=== PATIENT | male | born 1950 | race Caucasian/White ===

== ENCOUNTER 2018-02-05 07:31 | Inpatient (IN) ==
[2018-02-05] MEDS ORDERED: ceFAZolin 2 GM Premix Inj 2 GM/50 ML PIGGYBACK IV.SIG SCH (08:00)
[2018-02-05] MEDS ORDERED: SODIUM CHLOR 0.9% IV.SIG SCH ×2 (08:00→09:00)
[2018-02-05] MEDS ORDERED: TRANEXAMIC ACID IV.SIG SCH ×2 (08:00→09:00)
[2018-02-05] MEDS ORDERED: Chlorhexidine 4% Topical 120 APPLIC/120 ML Bottle TOPICAL SCH (08:00)
[2018-02-05] MEDS ORDERED: Chlorhexidine Gluconate 2% 1 Pack (2 Cloths) TOPICAL ONE (08:06)
[2018-02-05] MEDS ORDERED: Metoprolol Tartrate 25 MG Tablet PO ONE (08:06)
[2018-02-05] MEDS ORDERED: Bupivacaine Liposomal PF 1.3% Inj 20 ML Vial ONE (08:40)
[2018-02-05] MEDS ORDERED: Sodium Chlor 0.9% Inj 500 ML IV.SIG SCH (09:00)
[2018-02-05] MEDS ORDERED: Bupivacaine Liposomal PF 1.3% Inj 20 ML Vial NERV BLOCK ONE (09:00)
[2018-02-05] MEDS ORDERED: Sodium Chlor 0.9% Inj 80 ML, Bupivacaine Liposo PF 1.3% Inj 20 ML P-ARTICULR SCH ×2 (09:00)
[2018-02-05] MEDS ORDERED: Propofol Inj 500 MG/50 ML Vial ONE (09:41)
[2018-02-05] MEDS ORDERED: Bupivacaine/Dextrose 0.75% Inj 2 ML Ampul ONE (09:42)
[2018-02-05] MEDS ORDERED: Aluminum/Magnesium/Simethacone Susp 30 ML UDC PO PRN (09:51)
[2018-02-05] MEDS ORDERED: Acetaminophen 325 MG Tablet PO PRN (09:51)
[2018-02-05] MEDS ORDERED: Bisacodyl 10 MG Supp RECTAL PRN (09:51)
[2018-02-05] MEDS ORDERED: Tranexamic Acid Inj 0 MG in Sodium Chlor 0.9% Inj 100 ML IV.SIG ONE (09:51)
[2018-02-05] MEDS ORDERED: Zolpidem Tartrate 5 MG Tablet PO PRN (09:51)
[2018-02-05] MEDS ORDERED: Morphine Inj 4 MG/ML Vial IV.PUSH PRN (09:51)
[2018-02-05] MEDS ORDERED: Phenylephrine/NS 1000 MCG/10ML Syringe IV.PUSH ONE (10:35)
[2018-02-05] MEDS ORDERED: Sodium Chlor 0.9% Inj 250 ML IV.SIG ONE (10:35)
--- NOTE | 2018-02-05 12:39 | P.DCO ---
- Physical Therapy Physical Therapy: Gait training Knee: Total knee, Protocol: Left, Gait training, Full weight bearing Left Lower Extremity Weight Bearing: Weight bearing as tolerated Left Lower Extremity Range of Motion: Active ROM (Active, active assisted and passive range of motion. Range of motion goal is 0 extension to 135 of flexion.) - Nursing Nursing: Dressing changes Dressing changes: Daily dressing change, Coverderm/Primapore Additional instructions: Do not remove Dermabond Prineo. - Certification Need for Home Health services: I have seen patient Phil Florence on 02/05/18. My clinical findings support the need for the requested home health care services because: Need for Home Health Services: Limited ability to care for self, High risk of falls Homebound Certification: I certify that my clinical findings support that this patient is homebound because: Homebound Certification: Post-op weakness, Unsteady gait/balance, Unsafe to leave home unassisted
--- NOTE | 2018-02-05 12:45 | P.OP ---
- Preoperative Diagnosis (1) Primary osteoarthritis of left knee - Postoperative Diagnosis (1) Primary osteoarthritis of left knee Date of procedure: 02/05/18 Procedure: Left total knee arthroplasty using [employer] Triathlon prosthesis (uncemented). Anesthesia: regional (Adductor canal block), local (Exparel), spinal Surgeon: Mauri Negrete MD Accounting Systems Analyst: JACKSON Nelson Estimated blood loss (mL): 200 Tourniquet time (min): 0 Pathology: none sent Operation and Findings: Indications and Findings: This 67-year-old man has a 3 year history of left knee pain progressively worsening to the point that his ambulation tolerance is only about 100 feet without pain. He needs to continue walking so he does so. He has difficulty with ladders. He has difficulty with other activities of daily living including standing from seated positions and other changes in position. Treatment has included anti-inflammatory agents, analgesics, intra- articular corticosteroid injections, exercises and activity modification. This has not helped and he continues to have progressive worsening of pain with progressive varus deformity. Physical findings showed significant degenerative varum with tenderness in the medial compartment, laxity in the medial compartment, palpable osteophytes and patellofemoral and medial crepitation. Radiographic findings included severe osteoarthritis with loss of articular cartilage to [id number] in the medial compartment, medial, lateral and patellofemoral osteophytes and subchondral sclerosis. Operative findings: There is severe osteoarthritis in the knee with cartilage to [id number] in the medial compartment, changes with loss of articular cartilage to expose subchondral bone in the patellofemoral compartment, osteophytes in all compartments. The prosthesis used was a Kurtis Triathlon prosthesis. The femur was a size 8, cruciate retaining, uncemented. The tibial baseplate was a size 8 Tritanium with a 9 mm cruciate retaining X3 polyethylene spacer. The patella was a size 40 mm asymmetric Tritanium backed. The patient was brought to the clean-air operating suite after administration of a regional anesthetic by adductor canal block. A spinal anesthetic was administered. The position was supine with a small bolster under the hip on the operative side. A pneumatic tourniquet was applied to the upper thigh. The lower extremity was prepped with alcohol, Hibiclens and ChloraPrep and draped in the usual manner with the knee draped free. An appropriate timeout procedure was carried out. An incision was made from about 3 fingerbreadths above the superior medial pole of patella down the tibial tubercle on the medial side. The incision was deepened through the subcutaneous tissue to the retinacular structures which were exposed medially and laterally. A medial retinacular incision was made from the superior medial pole of patella down the tibial tubercle and up into the quadriceps tendon, splitting it longitudinally in the medial one third. The patella was reflected. The infrapatellar fat pad was debulked. The anterior cruciate ligament was excised. Medial and lateral meniscectomies were initiated. Fenestrations were made in the distal femur and proximal tibia for intramedullary referencing guides. The distal femoral cutting guide and jig were assembled for a 5, 8 mm cut. When this was fit into position,the cutting block was stabilized with pins. The jig was removed. The distal femoral cut was completed with the oscillating saw. The sizing guide was positioned in place along Whitesides line and the epicondylar axis and stabilized with pins. The femoral size was determined as noted above. The 4-in-1 cutting block was positioned in place. Anterior and posterior cuts were made followed by posterior and anterior chamfer cuts taking care to prevent injury to ligamentous structures. Osteophytes were trimmed from the distal femur. A bone plug was placed into the fenestration of the distal femur. The proximal tibia was exposed. The medial and lateral meniscectomies were completed. The proximal tibial cutting guide was positioned in place and stabilized with a pin for rotation. The depth of cut was verified with a stylus off the high side. The cutting block was stabilized with pins. The jig was removed. The depth of cut was verified and adjusted appropriately with the use of the spacer block. The proximal tibial cut was made with the oscillating saw taking care to prevent injury to neurovascular and ligamentous structures. Proximal tibial bone was removed. Local anesthetic was administered with Exparel in the posterior capsule. The tibial baseplate trial was positioned in place. After verifying the appropriate size, the base plate trial was positioned in place along with its spacer. The femoral component was impacted into place. The alignment was checked. The tibial baseplate was pinned in place on the tibia. Attention was directed to the patella. The patella drill guide was positioned in place for the appropriate sized patella. Patellar drilling was then carried out. The trial patella was positioned in place. The knee was taken through a range of motion which was easily 0 extension to 140 of flexion. The patella trial was removed. The femoral drill holes were made. The femoral trials were removed. The tibial spacer was removed. A bone plug was placed into the proximal tibia. The tibial punch was impacted through the proximal tibial punch guide. This was all removed followed by placement of the tibial drill guide. The tibial drill holes were made. The guide was removed. The cut ends of bone were cleaned with pulse lavage. The tibial baseplate was impacted into place and seated appropriately. The spacer was inserted. The the femoral component was impacted into place and seated appropriately. The patella component was seated with the patellar vice and tightened appropriately. The knee was taken through a range of motion which was comparable to the previous range of motion with excellent stability in flexion and extension and appropriate patellofemoral tracking. The remainder of the Exparel was injected throughout the knee as a local anesthetic. Drains were brought out the superior lateral aspect of the suprapatellar pouch. Wound closure commenced using 0 Vicryl interrupted [id number] sutures for the capsular and fascial structures, 2-0 Vicryl interrupted simple sutures with buried knots for the subcutaneous tissues and 4-0 Monocryl, continuous subcuticular closure for the skin. The wound was dressed with Dermabond Prineo followed by a dry sterile dressing. Sterile soft roll with a cooling pad and Syd bandage from the base of the toes to mid thigh were applied. Patient was transferred from the operating room to the recovery room in satisfactory condition having tolerated procedure well. Counts were correct. Specimens: None. Estimated blood loss: 200 mL
[2018-02-05] MEDS ORDERED: Dextrose 50% in Water 50 ML Vial IV.PUSH PRN (12:52)
[2018-02-05] MEDS ORDERED: Post-op Orders (for Pharmacy) OTHER STA (13:05)
--- NOTE | 2018-02-05 13:33 | XR ---
EXAM DATE: 02/05/2018 1:31 PM EDT AGE/SEX: 67 years / Male INDICATIONS: Post op left knee. CLINICAL DATA: This is the patient's initial encounter. Patient reports that signs and symptoms have been present for 1 day and indicates a pain score of Nonresponsive. MEDICAL/SURGICAL HISTORY: Non-responsive. Non-responsive. COMPARISON: POI, XR KNEE COMPLETE, LEFT, 12/27/2017. . FINDINGS: Status post placement of a knee prosthesis. There is good position and alignment of the prosthesis wi th the bony structures. Postsurgical changes are demonstrated. The bony structures are grossly intact . CONCLUSION: Good position and alignment on this postoperative study. Electronically signed by: George Peng MD 02/05/2018 1:32 PM EDT
[2018-02-05] MEDS: Ketorolac Inj 30 MG/ML (IVP) Vial IV.PUSH SCH ×2 (13:39→17:36)
--- NOTE | 2018-02-05 15:03 | P.CONIM ---
History of Present Illness Service: [facility] Consult date: 02/05/18 Requesting Physician: Mauri Negrete Reason for Consult: MEDICAL MANAGEMENT Primary Care Provider: Ish Valdes MD Family Provider: Ish Valdes MD Chief Complaint: MEDICAL MANAGEMENT AFTER LEFT TOTAL KNEE ARTHROPLASTY History of Present Illness: Patient is a 67-year-old gentleman who on left total knee arthroplasty due to severe osteoarthritis. Patient has a past medical history significant for osteoarthritis, diabetes, and hypertension. Has a history of coronary artery disease and history of cardiac stents. As well as a history of lithotripsy for kidney stones and a history of umbilical hernia repair We have been asked to see the patient regarding help with medical management will make sure he is on a sliding scale coverage with Accu-Cheks before meals and at bedtime as well as a diabetic cardiac diet. Family history possible hypertension Review of Systems All other systems reviewed negative except as stated in HPI [facility] - History History Provided By: Patient - Medical History Medical History: Medical History (Last Reviewed 02/05/18 @ 08:08 by Ludmila Davila) Arthritis Diabetes Hypertension - Surgical History Surgical History: Surgical History (Last Updated 02/05/18 @ 08:08 by Ludmila Davila) H/O colonoscopy History of cardiac catheterization Hx of lithotripsy Hx of umbilical hernia repair - Tobacco History Second Hand Smoke Exposure: No Tobacco Use In Past 30 Days: No Smoking Status: Never smoker - Alcohol History How Often Do You Have a Drink Containing Alcohol: Never - Substance Use History Substance History: No History of Abuse - Travel History Recent Travel in the [place] Within the Last 8 Weeks: No Recent Travel Out of the Country Within the Last 8 Weeks: No - Immunization History Tetanus Immunization: Unsure Hx Influenza Vaccine This Season: Yes Medications and Allergies Active Medications: Active Medications Acetaminophen (Tylenol) 650 mg PO Q6H PRN PRN Reason: Pain Less Than 3 On Scale Hydrocodone Bitart/Acetaminophen ([place] 7.5/325) 1 tab PO Q4H PRN PRN Reason: PAIN SCALE 4 TO 6 MODERATE Hydrocodone Bitart/Acetaminophen ([place] 7.5/325) 2 tab PO Q6H PRN PRN Reason: PAIN SCALE 7 TO 10 SEVERE Al Hydrox/Mg Hydrox/Simethicone (Mag-Al Plus Susp Liq) 30 ml PO Q6H PRN PRN Reason: INDIGESTION Al Hydroxide/Mg Hydroxide (Milk Of Magnesia Liq) 30 ml PO BID PRN PRN Reason: Mild Constipation Aspirin (Aspirin) 325 mg PO DAILY [facility] Bisacodyl (Dulcolax Supp) 10 mg RECTAL DAILY PRN PRN Reason: SEVERE CONSITIPATION Chlorhexidine Gluconate (Hibiclens 4% Topical) 1 applicatio TOPICAL ONCE [facility] Stop: 02/09/18 07:59 Last Admin: 02/05/18 08:28 Dose: 1 applicatio Sodium Chloride 80 ml/ (Bupivacaine Liposome 20 ml) 0 ml P-ARTICULR ONCE [facility] Stop: 02/05/18 15:00 Last Admin: 02/05/18 11:58 Dose: 100 bag Dextrose (D50w Vial) 50 ml IV.PUSH UNSCH PRN PRN Reason: PER HYPOGLYCEMIA PROTOCOL Diphenhydramine HCl (Benadryl) 25 mg PO Q6H PRN PRN Reason: ITCHING Gemfibrozil (Lopid) 600 mg PO BID [facility] Glucagon (Glucagon Inj) 1 mg OTHER PRN PRN PRN Reason: for Hypoglycemia Protocol Hydrochlorothiazide (Microzide) 12.5 mg PO DAILY [facility] Cefazolin Sodium/Dextrose (Ancef 2 Gm Premix Inj) 2 gm in 50 mls @ 100 mls/hr IV.SIG TUMBLER PLATER [facility] Stop: 02/09/18 07:59 Cefazolin Sodium 1,000 mg/ (Sodium Chloride) 100 mls @ 200 mls/hr IV.SIG Q6H [facility] Stop: 02/06/18 04:29 Lactated Ringer's (Lr 1000 Ml Inj) 1,000 mls @ 80 mls/hr IV.CONT .[id number] [facility] Last Admin: 02/05/18 13:33 Dose: 80 mls/hr Insulin Aspart (Novolog Insulin Correctional Sugar Inj) 0 unit SQ ACHS AND 3AM [facility]; Protocol Ketorolac Tromethamine (Toradol Inj) 15 mg IV.PUSH Q6HR [facility] Stop: 02/07/18 06:01 Last Admin: 02/05/18 13:39 Dose: 15 mg Lactulose (Lactulose Liq) 30 ml PO DAILY PRN PRN Reason: SEVERE CONSITIPATION Metoprolol Succinate (Toprol Xl) 25 mg PO DAILY [facility] Miscellaneous Information (Misc Post-Op Orders (For Pharmacy)) 0 each OTHER STAT STA Stop: 02/05/18 09:52 Miscellaneous Information ([facility] Information) 1 each OTHER UNSCH PRN PRN Reason: SEE LABEL COMMENTS Stop: 02/06/18 13:04 Morphine Sulfate (Morphine Inj) 2 mg IV.PUSH Q3H PRN PRN Reason: BREAKTHROUGH PAIN Multivitamins/Minerals (Theragran-M) 1 tab PO DAILY [facility] Non-Formulary Medication (Amlodipine-Benazepril [Amlodipine-Benazepril]) 1 cap PO DAILY [facility] Ondansetron HCl (Zofran Odt) 4 mg PO Q6H PRN PRN Reason: NAUSEA OR VOMITING Senna/Docusate Sodium (Yas-Colace) 1 tab PO BID [facility] Sennosides (Senokot) 17.2 mg PO BID PRN PRN Reason: Moderate Constipation Sodium Chloride (Ns Flush) 2 ml IV.FLUSH BID [facility] Sodium Chloride (Ns Flush) 2 ml IV.FLUSH PRN PRN PRN Reason: FLUSH AFTER USING IV ACCESS Vitamin B Complex/Vitamin C ([place]bee C) 1 tab PO DAILY [facility] Zolpidem Tartrate (Ambien) 5 mg PO HS PRN PRN Reason: INSOMNIA Allergies Allergy/AdvReac Type Severity Reaction Status Date / Time No Known Allergies Allergy Verified 02/05/18 08:09 Home Medications Medication Instructions Recorded Confirmed Type B-complex with vitamin C [Super B 1 tab PO DAILY 01/24/18 02/05/18 History Complex-Vitamin C] amlodipine-benazepril 1 cap PO DAILY 01/24/18 02/05/18 History aspirin 325 mg PO DAILY 01/24/18 02/05/18 History coenzyme Q10 [Co Q-10] 200 mg PO DAILY 01/24/18 02/05/18 History gemfibrozil [Lopid] 600 mg PO BID 01/24/18 02/05/18 History hydrochlorothiazide 12.5 mg PO DAILY 01/24/18 02/05/18 History metoprolol succinate 25 mg PO DAILY 01/24/18 02/05/18 History yatsyybs-rfd-xlczn-vit K-lycop 1 tab PO DAILY 01/24/18 02/05/18 History [Men's Daily Formula] naproxen sodium [Aleve] 220 mg PO BID 01/24/18 02/05/18 History saw palmetto 1,000 mg PO DAILY 01/24/18 02/05/18 History Exam Vital signs: Vital Signs 02/05/18 08:18 02/05/18 08:19 02/05/18 13:04 Temperature 99 F 98.3 F Pulse Rate 67 68 75 Respiratory Rate 18 20 Blood Pressure 151/80 H 99/58 L Pulse Oximetry 97 98 93 L 02/05/18 13:15 02/05/18 13:30 02/05/18 13:45 Temperature Pulse Rate 70 68 67 Respiratory Rate 19 19 18 Blood Pressure 93/51 L 106/57 L 103/55 L Pulse Oximetry 93 L 96 97 02/05/18 13:50 02/05/18 13:57 Temperature 98.5 F Pulse Rate 64 Respiratory Rate 17 Blood Pressure 104/58 L Pulse Oximetry 96 97 Intake & Output 02/04/18 02/05/18 02/05/18 18:59 06:59 18:59 Intake Total 3110.65 / 3110.65 Output Total 300 / 300 Balance 2810.65 / 2810.65 Weight 106.5 kg Intake: IV 110.65 / 110.65 Cyklokapron Inj 1,065 MG In NS 110.65 / 110.65 Inj 100 ML @ 200 mls/hr IV.SIG ONCE [facility] Rx#:[id number] Anesthesia Amount 3000 / 3000 Output: Estimated Blood Loss 200 / 200 Wound Drainage 100 / 100 # 1 Left Knee Hemovac 100 / 100 Other: Weight On Admission 106.5 kg Narrative: GENERAL: Awake alert and oriented 3 talkative and cooperative SKIN: Warm and dry. HEAD: Atraumatic. Normocephalic. EYES: Pupils equal and round. No scleral icterus. No injection or drainage. EOMI ENT: No nasal bleeding or discharge. Mucous membranes pink and moist. Tongue is midline NECK: Trachea midline. No JVD. Supple CARDIOVASCULAR: Regular rate and rhythm. S1-S2 no S3 or S4 RESPIRATORY: No accessory muscle use. Clear to auscultation. Breath sounds equal bilaterally. GASTROINTESTINAL: Abdomen soft, non-tender, nondistended. Hepatic and splenic margins not palpable. MUSCULOSKELETAL: Extremities without clubbing, cyanosis, or edema. No obvious deformities. Left knee is wrapped and dressed NEUROLOGICAL: Awake and alert. No obvious cranial nerve deficits. Motor grossly within normal limits. Five out of 5 muscle strength in the arms and legs. Normal speech. PSYCHIATRIC: Appropriate mood and affect; insight and judgment normal. Results - Labs Labs: Laboratory Results - last 24 hr 02/05/18 02/05/18 08:04 13:09 POC Glucose 99 Blood Type O Positive Blood Type Recheck Required Antibody Screen Negative - Imaging Impressions Knee X-Ray 02/05/18 09:48 CONCLUSION: Good position and alignment on this postoperative study. Assessment and Plan - Plan Status post left total knee arthroplasty due to severe osteoarthritis with failed conservative measures Diabetes mellitus continue sliding scale coverage with Accu-Cheks before meals and at bedtime and diabetic cardiac diet hypertension continue on His hydrochlorothiazide and metoprolol continue on amlodipine benazepril Hyperlipidemia continue on gemfibrozil Coronary artery disease continue on his aspirin Will check a.m. labs TSH, free T4, hemoglobin A1c CBC CMP, magnesium and phosphorus Continue physical therapy and Occupational Therapy We will defer DVT prophylaxis to orthopedic surgery Thank you for allowing us to help in the care of this most interesting patient Mr. MCCOLLUM Code Status: FULL CODE Discussed Condition With: RN AND PT Discharge Planning: PENDING ORTHOPEDIC CLEARANCE
[2018-02-05] MEDS: Insulin NovoLOG Aspart Correctional Sugar Inj SQ SCH ×2 (17:38→22:51)
[2018-02-05] MEDS: Senna/Docusate Sodium 8.6/50 MG Tablet PO SCH (22:15)
[2018-02-05] MEDS: Gemfibrozil 600 MG Tablet PO SCH (22:15)
[2018-02-06] MEDS: Ketorolac Inj 30 MG/ML (IVP) Vial IV.PUSH SCH ×3 (00:24→15:49)
[2018-02-06] MEDS: Insulin NovoLOG Aspart Correctional Sugar Inj SQ SCH ×3 (03:30→15:48)
[2018-02-06 05:19] LABS: Baso % (Auto) 0.4 % (0.0-2.0); Eos # (Auto) 0.1 th/mm3 (0.0-0.4); Eos % (Auto) 1.1 % (0.0-4.0); Hematocrit 35.9 % (39.0-51.0); Hemoglobin 12.6 gm/dL (13.0-17.0); Lymph # (Auto) 2.4 th/mm3 (1.0-4.8); Lymph % (Auto) 25.1 % (9.0-44.0); Mean Corpuscular Hemoglobin 30.6 pg (27.0-34.0); Mean Corpuscular Volume 87.4 fL (80.0-100.0); Mean Platelet Volume 7.7 fL (7.0-11.0); Mono # (Auto) 0.7 th/mm3 (0.0-0.9); Neut # (Auto) 6.4 th/mm3 (1.8-7.7); Neut % (Auto) 66.4 % (16.0-70.0); Platelet Count 189 th/mm3 (150-450); Red Cell Distribution Width 13.3 % (11.6-17.2); White Blood Count 9.6 th/mm3 (4.0-11.0)
[2018-02-06 05:48] LABS: Alanine Aminotransferase 32 U/L (12-78); Albumin 3.5 g/dL (3.4-5.0); Anion Gap 11 meq/L (5-15); Aspartate Aminotransferase 21 U/L (15-37); Blood Urea Nitrogen 32 mg/dL (7-18); Calcium 8.6 mg/dL (8.5-10.1); Carbon Dioxide 25.5 meq/L (21.0-32.0); Chloride 105 meq/L (98-107); Glomerular Filtration Rate 61 mL/min (>89); Glucose,Random 111 mg/dL (74-106); Magnesium 1.7 mg/dL (1.5-2.5); Potassium 4.2 meq/L (3.5-5.1); Sodium 141 meq/L (136-145)
[2018-02-06 05:57] LABS: Alkaline Phosphatase 50 U/L (45-117); Total Protein 6.7 g/dL (6.4-8.2)
--- NOTE | 2018-02-06 07:25 | P.PNOP ---
Subjective Interval history: Postop day #1 He is doing well. He has minimal complaints related to the knee. Physical therapy reports that the ambulation distance was 18 feet than 100 feet. The range of motion was 0 degrees extension to 61 degrees of flexion. Physical Exam Vital signs: Vital Signs 02/05/18 08:18 02/05/18 08:19 02/05/18 13:04 Temperature 99 F 98.3 F Pulse Rate 67 68 75 Respiratory Rate 18 20 Blood Pressure 151/80 H 99/58 L Pulse Oximetry 97 98 93 L 02/05/18 13:15 02/05/18 13:30 02/05/18 13:45 Temperature Pulse Rate 70 68 67 Respiratory Rate 19 19 18 Blood Pressure 93/51 L 106/57 L 103/55 L Pulse Oximetry 93 L 96 97 02/05/18 13:50 02/05/18 13:57 02/05/18 14:30 Temperature 98.5 F 98 F Pulse Rate 64 63 Respiratory Rate 17 16 Blood Pressure 104/58 L 127/67 Pulse Oximetry 96 97 95 02/05/18 16:00 02/05/18 20:00 02/06/18 00:00 Temperature 97.6 F 97.4 F L 97.4 F L Pulse Rate 56 L 68 68 Respiratory Rate 16 18 18 Blood Pressure 92/57 L 131/63 124/70 Pulse Oximetry 93 L 98 97 02/06/18 01:36 02/06/18 04:00 Temperature 97.3 F L Pulse Rate 62 Respiratory Rate 18 17 Blood Pressure 136/77 Pulse Oximetry 98 Intake & Output 02/05/18 02/06/18 02/06/18 18:59 06:59 18:59 Intake Total 3210.65 / 3210.65 1200 / 1200 Output Total 300 / 300 650 / 650 Balance 2910.65 / 2910.65 550 / 550 Weight 106.5 kg Intake: IV 210.65 / 210.65 1200 / 1200 LR 1000 mL Inj 1,000 ML @ 80 1000 / 1000 mls/hr IV.CONT .[id number] [facility] Rx# :[id number] Cyklokapron Inj 1,065 MG In NS 110.65 / 110.65 Inj 100 ML @ 200 mls/hr IV.SIG ONCE [facility] Rx#:[id number] Ancef Inj 1,000 MG In NS Inj 100 / 100 200 / 200 100 ML @ 200 mls/hr IV.SIG Q6H [facility] Rx#:[id number] Anesthesia Amount 3000 / 3000 Output: Urine 250 / 250 Estimated Blood Loss 200 / 200 Wound Drainage 100 / 100 400 / 400 # 1 Left Knee Hemovac 100 / 100 400 / 400 Other: Date of Last Bowel Movement 02/05/18 02/05/18 Weight On Admission 106.5 kg Narrative: He is resting comfortably, supine in bed. The neurovascular status is intact. The dressing is dry and intact. Results - Labs CBC & Chem 7: 02/06/18 04:54 02/06/18 04:32 Laboratory Results - last 24 hr 02/05/18 02/05/18 02/05/18 08:04 13:09 16:34 WBC RBC Hgb Hct MCV MCH MCHC RDW Plt Count MPV Neut % (Auto) Lymph % (Auto) [place] % (Auto) Eos % (Auto) Baso % (Auto) Neut # (Auto) Lymph # (Auto) [place] # (Auto) Eos # (Auto) Baso # (Auto) WBC Differential Differential Comment Sodium Potassium Chloride Carbon Dioxide Anion Gap BUN Creatinine Estimated GFR POC Glucose 99 152 H Random Glucose Calcium Phosphorus Magnesium Total Bilirubin AST ALT Alkaline Phosphatase Total Protein Albumin TSH Free T4 Blood Type O Positive Blood Type Recheck Required Antibody Screen Negative 02/05/18 02/06/18 02/06/18 20:03 03:26 04:32 WBC RBC Hgb Hct MCV MCH MCHC RDW Plt Count MPV Neut % (Auto) Lymph % (Auto) [place] % (Auto) Eos % (Auto) Baso % (Auto) Neut # (Auto) Lymph # (Auto) [place] # (Auto) Eos # (Auto) Baso # (Auto) WBC Differential Differential Comment Sodium 141 Potassium 4.2 Chloride 105 Carbon Dioxide 25.5 Anion Gap 11 BUN 32 H Creatinine 1.18 Estimated GFR 61 L POC Glucose 167 H 118 H Random Glucose 111 H Calcium 8.6 Phosphorus 4.0 Magnesium 1.7 Total Bilirubin 0.7 AST 21 ALT 32 Alkaline Phosphatase 50 Total Protein 6.7 Albumin 3.5 TSH 1.860 Free T4 0.80 Blood Type Blood Type Recheck Antibody Screen 02/06/18 04:54 WBC 9.6 RBC 4.10 L Hgb 12.6 L Hct 35.9 L MCV 87.4 MCH 30.6 MCHC 35.0 RDW 13.3 Plt Count 189 MPV 7.7 Neut % (Auto) 66.4 Lymph % (Auto) 25.1 [place] % (Auto) 7.0 Eos % (Auto) 1.1 Baso % (Auto) 0.4 Neut # (Auto) 6.4 Lymph # (Auto) 2.4 [place] # (Auto) 0.7 Eos # (Auto) 0.1 Baso # (Auto) 0.0 WBC Differential . Differential Comment Auto diff final Sodium Potassium Chloride Carbon Dioxide Anion Gap BUN Creatinine Estimated GFR POC Glucose Random Glucose Calcium Phosphorus Magnesium Total Bilirubin AST ALT Alkaline Phosphatase Total Protein Albumin TSH Free T4 Blood Type Blood Type Recheck Antibody Screen - Imaging Impressions Knee X-Ray 02/05/18 09:48 CONCLUSION: Good position and alignment on this postoperative study. - Procedures Left total knee arthroplasty using [employer] Triathlon prosthesis (noncemented) on 02/06/2018. Assessment and Plan - Ortho Post Op Day # 1 - Problem List (1) Status post total left knee replacement not using cement Code(s): Z96.652 - Presence of left artificial knee joint Status: Acute Plan: Continue postop care and PT. - Assessment and Plan Condition: Good. Orthopedically stable. DVT prophylaxis: TEDs, aspirin, sequentials. Discharge plans: Home with home health care. An appointment was scheduled through the office. Prescriptions: [place] 7.5/325; Patient is having significant pain caused by a total knee arthroplasty which will last more than 3 days. Trial of Tylenol has not helped. I believe that it is medically necessary to treat patients pain because it is affecting patients ability to participate in postoperative rehabilitation and perform activities of daily living in a comfortable and efficient manner.
--- NOTE | 2018-02-06 08:04 | P.DS ---
Date of admission: 02/05/18 07:31 Primary care physician: Ish Valdes MD Attending physician on discharge: Mauri Negrete Anticipated date of discharge: 02/06/18 Brief History from admission: This 67-year-old man has had long-standing which has been nonresponsive to conservative measures as detailed in the history and physical examination. His ambulation tolerance is been limited. He has continued pain in the knee with a progressive varus deformity. Physical findings showed genu varum with medial laxity, crepitation on motion and tenderness on motion with an antalgic gait. X -rays showed loss of articular cartilage to [id number] with subchondral sclerosis and osteophytes. DS: Diagnosis - Discharge Diagnosis (1) Status post total left knee replacement not using cement Status: Acute Diagnosis: Principal (2) Primary osteoarthritis of left knee Status: Chronic Diagnosis: Principal DS: Medications - Discharge Medications Prescriptions: hydrocodone-acetaminophen 1 tab PO Q4H PRN 7 Days #42 tab PRN Reason: Pain, Severe DS: Summary Hospital Course: The patient was admitted as noted above. The above noted operative procedure was carried out that day. Preoperatively prophylactic antibiotics were administered Ancef according to protocol. These were continued postoperatively. The patient also received tranexamic acid to help with hemostasis according to protocol. In the postanesthesia care unit a continuous passive motion device was initiated. Also initiated were mechanical methods of DVT prophylaxis in the form of CHARLES stockings and sequentials. Physical therapy was initiated on the day of surgery. On postoperative day #1 physical therapy continued. The use of the continuous passive motion device continued. DVT prophylaxis with aspirin 81 mg was initiated at this time. The patient continued physical therapy throughout the hospitalization. The distance walked and range of motion improved throughout the hospitalization. The patient was discharged on postoperative day 1 with the disposition being to home with home health care. An appointment for follow-up was made prior to admission. - Time Spent with Patient Total time spent providing and/or coordinating discharge services: Less than 30 minutes - Quality: VTE Deep Vein Thrombosis/Pulmonary Embolism Present on Admission: No Exam Vital signs: Vital Signs 02/05/18 08:18 02/05/18 08:19 02/05/18 13:04 Temperature 99 F 98.3 F Pulse Rate 67 68 75 Respiratory Rate 18 20 Blood Pressure 151/80 H 99/58 L Pulse Oximetry 97 98 93 L 02/05/18 13:15 02/05/18 13:30 02/05/18 13:45 Temperature Pulse Rate 70 68 67 Respiratory Rate 19 19 18 Blood Pressure 93/51 L 106/57 L 103/55 L Pulse Oximetry 93 L 96 97 02/05/18 13:50 02/05/18 13:57 02/05/18 14:30 Temperature 98.5 F 98 F Pulse Rate 64 63 Respiratory Rate 17 16 Blood Pressure 104/58 L 127/67 Pulse Oximetry 96 97 95 02/05/18 16:00 02/05/18 20:00 02/06/18 00:00 Temperature 97.6 F 97.4 F L 97.4 F L Pulse Rate 56 L 68 68 Respiratory Rate 16 18 18 Blood Pressure 92/57 L 131/63 124/70 Pulse Oximetry 93 L 98 97 02/06/18 01:36 02/06/18 04:00 Temperature 97.3 F L Pulse Rate 62 Respiratory Rate 18 17 Blood Pressure 136/77 Pulse Oximetry 98 Intake & Output 02/05/18 02/06/18 02/06/18 18:59 06:59 18:59 Intake Total 3210.65 / 3210.65 1200 / 1200 Output Total 300 / 300 650 / 650 Balance 2910.65 / 2910.65 550 / 550 Weight 106.5 kg Intake: IV 210.65 / 210.65 1200 / 1200 LR 1000 mL Inj 1,000 ML @ 80 1000 / 1000 mls/hr IV.CONT .[id number] [facility] Rx# :[id number] Cyklokapron Inj 1,065 MG In NS 110.65 / 110.65 Inj 100 ML @ 200 mls/hr IV.SIG ONCE [facility] Rx#:[id number] Ancef Inj 1,000 MG In NS Inj 100 / 100 200 / 200 100 ML @ 200 mls/hr IV.SIG Q6H [facility] Rx#:[id number] Anesthesia Amount 3000 / 3000 Output: Urine 250 / 250 Estimated Blood Loss 200 / 200 Wound Drainage 100 / 100 400 / 400 # 1 Left Knee Hemovac 100 / 100 400 / 400 Other: Date of Last Bowel Movement 02/05/18 02/05/18 Weight On Admission 106.5 kg Narrative: He is resting comfortably, supine in bed. The dressing is dry and intact. The neurovascular status is intact. Results Procedures completed during hospitalization: Left total knee arthroplasty using [place] Triathlon prosthesis (noncemented) on 02/06/2018. Labs on day of discharge: Labs from last 24 hours 02/06/18 02/06/18 02/06/18 07:26 04:54 04:32 WBC 9.6 RBC 4.10 L Hgb 12.6 L Hct 35.9 L MCV 87.4 MCH 30.6 MCHC 35.0 RDW 13.3 Plt Count 189 MPV 7.7 Neut % (Auto) 66.4 Lymph % (Auto) 25.1 Luna % (Auto) 7.0 Eos % (Auto) 1.1 Baso % (Auto) 0.4 Neut # (Auto) 6.4 Lymph # (Auto) 2.4 Luna # (Auto) 0.7 Eos # (Auto) 0.1 Baso # (Auto) 0.0 WBC Differential . Differential Comment Auto diff final Sodium 141 Potassium 4.2 Chloride 105 Carbon Dioxide 25.5 Anion Gap 11 BUN 32 H Creatinine 1.18 Estimated GFR 61 L POC Glucose 113 H Random Glucose 111 H Hemoglobin A1c Calcium 8.6 Phosphorus 4.0 Magnesium 1.7 Total Bilirubin 0.7 AST 21 ALT 32 Alkaline Phosphatase 50 Total Protein 6.7 Albumin 3.5 TSH 1.860 Free T4 0.80 Blood Type Blood Type Recheck Antibody Screen 02/06/18 02/06/18 02/05/18 04:32 03:26 20:03 WBC RBC Hgb Hct MCV MCH MCHC RDW Plt Count MPV Neut % (Auto) Lymph % (Auto) Luna % (Auto) Eos % (Auto) Baso % (Auto) Neut # (Auto) Lymph # (Auto) Luna # (Auto) Eos # (Auto) Baso # (Auto) WBC Differential Differential Comment Sodium Potassium Chloride Carbon Dioxide Anion Gap BUN Creatinine Estimated GFR POC Glucose 118 H 167 H Random Glucose Hemoglobin A1c Pending Calcium Phosphorus Magnesium Total Bilirubin AST ALT Alkaline Phosphatase Total Protein Albumin TSH Free T4 Blood Type Blood Type Recheck Antibody Screen 02/05/18 02/05/18 02/05/18 16:34 13:09 08:04 WBC RBC Hgb Hct MCV MCH MCHC RDW Plt Count MPV Neut % (Auto) Lymph % (Auto) Luna % (Auto) Eos % (Auto) Baso % (Auto) Neut # (Auto) Lymph # (Auto) Luna # (Auto) Eos # (Auto) Baso # (Auto) WBC Differential Differential Comment Sodium Potassium Chloride Carbon Dioxide Anion Gap BUN Creatinine Estimated GFR POC Glucose 152 H 99 Random Glucose Hemoglobin A1c Calcium Phosphorus Magnesium Total Bilirubin AST ALT Alkaline Phosphatase Total Protein Albumin TSH Free T4 Blood Type O Positive Blood Type Recheck Required Antibody Screen Negative - Impressions ITS Impressions Knee X-Ray 02/05/18 09:48 CONCLUSION: Good position and alignment on this postoperative study. Discharge Plan - Discharge Disposition Patient Disposition: W/Home Health Service - Discharge Condition Condition: Stable - Discharge Order Discharge Orders: Discharge Order (Routine); Ordered 02/06/18 Ordered By: Mauri Negrete - Discharge Details Anticipated Discharge Date: 02/06/18 - Physicians Team Primary Care Provider: Ish Valdes Attending Provider: Mauri Negrete Other Providers: Cameron Toscano MD - Rxs /Orders / Referrals /Forms Prescriptions: New Amlodipine-Benazepril [Amlodipine-Benazepril] 1 cap PO DAILY hydrocodone-acetaminophen 7.5-325 mg Tablet 1 tab PO Q4H PRN (Reason: Pain, Severe) 7 Days Qty: 42 RF: 0 Continue amlodipine-benazepril 10-40 mg Capsule 1 cap PO DAILY aspirin 325 mg Tablet 325 mg PO DAILY B-complex with vitamin C [Super B Complex-Vitamin C] Tablet 1 tab PO DAILY coenzyme Q10 [Co Q-10] 200 mg Capsule 200 mg PO DAILY gemfibrozil [Lopid] 600 mg Tablet 600 mg PO BID hydrochlorothiazide 12.5 mg Capsule 12.5 mg PO DAILY metoprolol succinate 25 mg Tablet Extended Release 24 Hr 25 mg PO DAILY [id number] K-lycop [Men's Daily Formula] 400-20-300 mcg Tablet 1 tab PO DAILY naproxen sodium [Aleve] 220 mg Capsule 220 mg PO BID saw palmetto 500 mg Capsule 1,000 mg PO DAILY Referrals: Mauri Negrete MD [Physician] - See Instructions Ish Valdes MD [Primary Care Provider] - See Instructions - Discharge Instructions Patient Printed Instructions: Hydrocodone/Acetaminophen (By mouth), How to Use an Incentive Spirometer (ED), How to Choose and Use a Walker (GEN), Fall Prevention (DC), CHARLES Hose (DC), Knee Replacement (DC) Additional Instructions: IT HAS BEEN OUR PLEASURE TAKING CARE OF YOU! GOOD LUCK WITH YOUR RECOVERY! WE HOPE THAT YOU HAVE HAD AN EXCEPTIONAL STAY HERE AT [facility]! - Post Discharge Care Plan Care Plan Goals: Discharge Care Plan Goals for Total Knee Replacement You have undergone knee replacement surgery. Your doctor replaced your painful joint with an artificial joint to relieve pain and restore movement. Here are some goals to help you heal well. Directions to Meet your Goals: 1. Activity & Exercises: * Take pain medicine as directed by your doctor. * Sit in chairs with arms. The arms make it easier for you to stand up or sit down. * Dont sit for more than 30 to 45 minutes at one time. * Nap if you are tired, but dont stay in bed all day. * Sleep with a pillow under your ankle, not your knee. Be sure to change the position of your leg during the night. * Wear the support stockings you were given in the hospital as directed by your surgeon. 2. Prevent Falls/Injury: The zavala to successful recovery is movement with walking and exercising your knee as directed by your doctor. * Arrange your household to keep the items you need handy. Keep everything else out of the way. * Remove items that may cause you to fall, such as throw rugs and electrical cords. * Use nonslip bath mats, grab bars, an elevated toilet seat, and a shower chair in your bathroom * Sit on a shower stool or chair when you shower to keep from falling. * Until your balance, flexibility, and strength improve, use a cane, crutches, a walker, handrails, or someone to help you. * Keep your hands free by using a backpack, jesse pack, apron, or pockets to carry things * Walk up and down stairs with support. Try one step at a time. Use the railing if possible. * Dont drive until your doctor says its OK. * Dont drive while you are taking opioid pain medicine. 3. Precautions: * Prevent infection. Any infection will need to be treated immediately. Call your doctor right away if you think you might have an infection. * Tell your dentist that you have an artificial joint and take antibiotics as prescribed before any dental work. * Tell all your healthcare providers about your artificial joint before any medical procedure. * Maintain a healthy weight. Get help to lose any extra pounds. Added body weight puts stress on the knee. * Your medications may include blood-thinning medicine to prevent blood clots or antibiotics to prevent infection-prevent any falls or cuts 4. Incision Care: * Prevent infection by washing your hands often. If an infection occurs, it will need to be treated right away. * Call your doctor right away if you think you may have an infection. Symptoms include a fever or an incision that leaks white, green, or yellow fluid. * Don't soak your incision in water until your doctor says its OK. This means no hot tubs, bathtubs, or swimming pools. * Follow your doctor's instructions for changing the dressing. * Dont rub the incision, or apply creams or lotions to it. * If you notice any redness or drainage around the bandage site, contact your surgeon's office immediately. 5. Follow-Up: Do Not miss your follow-up appointment. Keep up with all your appointments and yearly check ups When to call your doctor: Call your doctor right away if you have: Fever of 100.4F (38C) or higher, or as directed by your doctor Shaking chills Stiffness, or inability to move the knee Increased swelling in your leg Increased redness, tenderness, or swelling in or around the knee incision Drainage from the knee incision Increased knee pain Call 911: Call 911 right away if you have: Chest pain Shortness of breath Any pain or tenderness in your calf
[2018-02-06] MEDS ORDERED: Non-Formulary Drug (Coenzyme Q10 [Co Q-10] 200 MG) PO SCH (09:00)
[2018-02-06] MEDS ORDERED: Vitamin B Complex/Vitamin C Tablet PO SCH (09:00)
[2018-02-06] MEDS ORDERED: SAW PALMETTO 1000 MG PO SCH (09:00)
[2018-02-06] MEDS ORDERED: Aspirin 325 MG Tablet PO SCH (09:00)
[2018-02-06] MEDS ORDERED: amLODIPine 10 MG Tablet PO SCH (09:00)
[2018-02-06] MEDS ORDERED: Multivitamin/Minerals Therapeutic Tablet PO SCH (09:00)
[2018-02-06] MEDS ORDERED: Lisinopril 20 MG Tablet PO SCH (09:00)
[2018-02-06] MEDS ORDERED: Non-Formulary Drug (Amlodipine-Benazepril [Amlodipine-Benazepril] 1 CAP) PO SCH (09:00)
[2018-02-06] MEDS: Senna/Docusate Sodium 8.6/50 MG Tablet PO SCH (09:41)
[2018-02-06] MEDS: Gemfibrozil 600 MG Tablet PO SCH (09:42)
[2018-02-06 09:52] VITALS: RESP 18
--- NOTE | 2018-02-06 10:43 | P.PN ---
Subjective Interval history: Follow-up on patient status post elective left total knee replacement surgery. Patient seen and examined. Patient's been discharged by the orthopedic service. Patient states he feels well. Denies complaints of fever chills. Denies any chest pain or shortness of breath. Denies any nausea, vomiting or abdominal pain. He has not had a bowel movement since surgery but is passing flatus. Pain in the left knee is well controlled. Physical Exam Vital signs: Vital Signs 02/05/18 13:04 02/05/18 13:15 02/05/18 13:30 Temperature 98.3 F Pulse Rate 75 70 68 Respiratory Rate 20 19 19 Blood Pressure 99/58 L 93/51 L 106/57 L Pulse Oximetry 93 L 93 L 96 02/05/18 13:45 02/05/18 13:50 02/05/18 13:57 Temperature 98.5 F Pulse Rate 67 64 Respiratory Rate 18 17 Blood Pressure 103/55 L 104/58 L Pulse Oximetry 97 96 97 02/05/18 14:30 02/05/18 16:00 02/05/18 20:00 Temperature 98 F 97.6 F 97.4 F L Pulse Rate 63 56 L 68 Respiratory Rate 16 16 18 Blood Pressure 127/67 92/57 L 131/63 Pulse Oximetry 95 93 L 98 02/06/18 00:00 02/06/18 01:36 02/06/18 04:00 Temperature 97.4 F L 97.3 F L Pulse Rate 68 62 Respiratory Rate 18 18 17 Blood Pressure 124/70 136/77 Pulse Oximetry 97 98 02/06/18 08:00 Temperature 97.6 F Pulse Rate 78 Respiratory Rate 18 Blood Pressure 139/72 Pulse Oximetry 97 Intake & Output 02/05/18 02/06/18 02/06/18 18:59 06:59 18:59 Intake Total 3210.65 / 3210.65 1200 / 1200 Output Total 300 / 300 650 / 650 Balance 2910.65 / 2910.65 550 / 550 Weight 106.5 kg Intake: IV 210.65 / 210.65 1200 / 1200 LR 1000 mL Inj 1,000 ML @ 80 1000 / 1000 mls/hr IV.CONT .[id number] [facility] Rx# :[id number] Cyklokapron Inj 1,065 MG In NS 110.65 / 110.65 Inj 100 ML @ 200 mls/hr IV.SIG ONCE [facility] Rx#:[id number] Ancef Inj 1,000 MG In NS Inj 100 / 100 200 / 200 100 ML @ 200 mls/hr IV.SIG Q6H [facility] Rx#:[id number] Anesthesia Amount 3000 / 3000 Output: Urine 250 / 250 Estimated Blood Loss 200 / 200 Wound Drainage 100 / 100 400 / 400 # 1 Left Knee Hemovac 100 / 100 400 / 400 Other: Date of Last Bowel Movement 02/05/18 02/05/18 Weight On Admission 106.5 kg Narrative: GENERAL: Well-developed well-nourished male, no acute distress. Awake and alert. Oriented x 4. Appears comfortable. SKIN: Warm and dry. HEAD: Atraumatic. Normocephalic. EYES: Pupils equal and round. No scleral icterus. No injection or drainage. EOMI ENT: No nasal bleeding or discharge. Mucous membranes pink and moist. Tongue is midline NECK: Trachea midline. CARDIOVASCULAR: Regular rate and rhythm. RESPIRATORY: No accessory muscle use. Clear to auscultation. Breath sounds equal bilaterally. GASTROINTESTINAL: Abdomen soft, non-tender, nondistended. Hepatic and splenic margins not palpable. MUSCULOSKELETAL: Extremities without clubbing, cyanosis, or edema. No obvious deformities. Left knee incision healing well, hemovac drains [address] NEUROLOGICAL: Awake and alert. No obvious cranial nerve deficits. Motor grossly within normal limits. NV intact LLE distally. Able to move all extremities spontaneously. Normal speech. PSYCHIATRIC: Appropriate mood and affect; insight and judgment normal. Results - Labs CBC & Chem 7: 02/06/18 04:54 02/06/18 04:32 Laboratory Results - last 24 hr 02/05/18 02/05/18 02/05/18 13:09 16:34 20:03 WBC RBC Hgb Hct MCV MCH MCHC RDW Plt Count MPV Neut % (Auto) Lymph % (Auto) Faulk % (Auto) Eos % (Auto) Baso % (Auto) Neut # (Auto) Lymph # (Auto) Faulk # (Auto) Eos # (Auto) Baso # (Auto) WBC Differential Differential Comment Sodium Potassium Chloride Carbon Dioxide Anion Gap BUN Creatinine Estimated GFR POC Glucose 99 152 H 167 H Random Glucose Calcium Phosphorus Magnesium Total Bilirubin AST ALT Alkaline Phosphatase Total Protein Albumin TSH Free T4 02/06/18 02/06/18 02/06/18 03:26 04:32 04:54 WBC 9.6 RBC 4.10 L Hgb 12.6 L Hct 35.9 L MCV 87.4 MCH 30.6 MCHC 35.0 RDW 13.3 Plt Count 189 MPV 7.7 Neut % (Auto) 66.4 Lymph % (Auto) 25.1 Faulk % (Auto) 7.0 Eos % (Auto) 1.1 Baso % (Auto) 0.4 Neut # (Auto) 6.4 Lymph # (Auto) 2.4 Faulk # (Auto) 0.7 Eos # (Auto) 0.1 Baso # (Auto) 0.0 WBC Differential . Differential Comment Auto diff final Sodium 141 Potassium 4.2 Chloride 105 Carbon Dioxide 25.5 Anion Gap 11 BUN 32 H Creatinine 1.18 Estimated GFR 61 L POC Glucose 118 H Random Glucose 111 H Calcium 8.6 Phosphorus 4.0 Magnesium 1.7 Total Bilirubin 0.7 AST 21 ALT 32 Alkaline Phosphatase 50 Total Protein 6.7 Albumin 3.5 TSH 1.860 Free T4 0.80 02/06/18 07:26 WBC RBC Hgb Hct MCV MCH MCHC RDW Plt Count MPV Neut % (Auto) Lymph % (Auto) Faulk % (Auto) Eos % (Auto) Baso % (Auto) Neut # (Auto) Lymph # (Auto) Faulk # (Auto) Eos # (Auto) Baso # (Auto) WBC Differential Differential Comment Sodium Potassium Chloride Carbon Dioxide Anion Gap BUN Creatinine Estimated GFR POC Glucose 113 H Random Glucose Calcium Phosphorus Magnesium Total Bilirubin AST ALT Alkaline Phosphatase Total Protein Albumin TSH Free T4 - Imaging Impressions Knee X-Ray 02/05/18 09:48 CONCLUSION: Good position and alignment on this postoperative study. - Procedures Left total knee arthroplasty using [place] Triathlon prosthesis (noncemented) on 02/06/2018. Assessment and Plan - Plan 67-year-old admitted with osteoarthritis of the left knee failed attempts at conservative therapy status post elective left total knee replacement Osteoarthritis left knee, failed efforts at conservative therapy, status post elective left total knee replacement -Management per orthopedic service -Pain medication with bowel regimen Hypertension CAD Patient has no cardiac complaints. VSS. -Continue patient on lisinopril 40 mg daily, hydrochlorothiazide 12.5 mg daily, Toprol-XL 25 mg daily and Norvasc 10 mg daily -Continue on aspirin daily -Continue to monitor and adjust treatment accordingly Diabetes mellitus Blood sugars have been well controlled -Continue Accu-Cheks and insulin sliding scale Dyslipidemia -Continue patient on home dose of Lopid DVT prophylaxis -Per orthopedic service Discussed Condition With: patient, nursing staff, Dr. Toscano
[2018-02-06 19:31] VITALS: BP 130/65; PULSE 70; TEMP 97.7; O2SAT 99
== END 2018-02-06 18:32 | disposition home health service (06) ==
LOC: HSDI 07:31 → N06 14:07
PROVIDERS: ADMIT Orthopaedic Surgery; ATTEND Orthopaedic Surgery